=== PATIENT | female | born 1955 | race Caucasian/White ===

== ENCOUNTER 2017-12-02 03:46 | Emergency (ER) | payer OTHER ==
[~2017-12-02 03:46] MED LIST: PROTONIX 40MG T40 MG PO; TRAZODONE50 MG PO; ZOFRAN ODT4 MG PO
--- NOTE | 2017-12-02 04:04 | ED CRITICAL CARE ---
History of Present Illness General Chief Complaint: Cardiopulmonary Resuscitation Stated Complaint: BIBA CPR Source: family, old records, EMS Exam Limitations: clinical condition Vital Signs & Intake/Output Vital Signs & Intake/Output Vital Signs Date Time Temp Pulse Resp B/P B/P Pulse O2 O2 Flow FiO2 Mean Ox Delivery Rate 12/02 0402 97.1 Allergies Coded Allergies: MDX - Tramadol (Tramadol) (UNKNOWN 03/02/12) Uncoded Allergies: ?EYE DROPS (11/14/10) Reconcile Medications Pantoprazole Sodium (Protonix) 40 MG TAB 1 TAB PO DAILY BURNING STOMACH PAIN TRAZODONE HCL (Trazodone HCl) 50 MG TAB 50 MG PO DAILY DEPRESSION (Reported) Triage Note: PER EMS ARRIVES TO ED SP CODE AT HOME PER SPOUSE AND EMS PT HAS BEEN DRINKING ALOT OF ETOH LATELY AND NOT EATING, GOT UP, VOMITTED IN SINK THEN COLLAPSED SUSTAINING A LAC TO HEAD, CPR STARTED BY EMS UPON ARRIVAL. PT WAS GIVEN 4 EPI AND 300 MG OF AMIODERONE ENROUTE UPON ED ARRIVAL CPR CONTINUES WITH NO RETURN OF SPONTANOUS BREATHING OR HEART RATE Triage Nurses Notes Reviewed? yes HPI: Patient is an alcoholic. states that the patient has been drinking and not eating over the past few weeks. He states that she has been vomiting quite often over the same past few weeks. Tonight she went up to been and told him that her acid reflux was really acting up. Patient then stood up and fell face first to the ground. He heard snoring respirations. He immediately called 911. Upon EMS arrival patient was pulseless and apneic. The AED recommended defibrillation. The patient was defibrillated 3 times. CPR was initiated. An IV was inserted. A Combitube was inserted. On the monitor the patient was asystolic. Patient received a total of 4 mg of epi and 300 mg of amiodarone. Past History Travel History Traveled to [place] past 21 day No Medical History Any Pertinent Medical History? see below for history Neurological: NONE EENT: NONE Cardiovascular: hypertension Respiratory: NONE Gastrointestinal: NONE Hepatic: NONE Renal: NONE Musculoskeletal: NONE Psychiatric: NONE Endocrine: NONE Surgical History Surgical History: non-contributory, N Psychosocial History What is your primary language Thai Tobacco Use: Cognitive Impairment ETOH Use: heavy use, alcoholic Family History Hx Contributory? No Review of Systems Review of Systems Constitutional: Reports: see HPI. Physical Exam Physical Exam General Appearance: intubated, severe distress Head: lacerations (above right eye) Eyes: Bilateral: other (fixed and dilated). Neck: supple Respiratory: clear with bvm Cardiovascular: no heart sounds Core Measures ACS in differential dx? Yes CVA/TIA Diagnosis No Sepsis Present: No Sepsis Focused Exam Completed? No Progress Differential Diagnoses I considered the following diagnoses in my evaluation of the patient: [Cardiac arrest] Plan of Care: Patient pronounced, notified Initial ED EKG: none Rhythm Strip: asystole Departure Departure Disposition: Condition: Stable Clinical Impression Primary Impression: Cardiac arrest Referrals: Yanci Pete MD (PCP/Family) Departure Forms: General Discharge Information Critical Care Note Critical Care Note Critical Care Time: non-applicable Total CPR Time (mins): 7
== END 2017-12-02 11:16 | disposition expired ==
LOC: ERH 03:46 → ENTRNSPT 10:42 → EDTRNSPT 10:48 → EDTRNSPTSTS 10:48 → CMPTRNSPT 11:06 → ERH 11:16
DX: I46.9 Cardiac arrest, cause unspecified (principal)
CPT/HCPCS: 1387; 94799; 99291